=== PATIENT | male | born 1975 | race Caucasian/White ===

== ENCOUNTER 2019-04-21 17:41 | Emergency (ER) | payer BC ==
[2019-04-21] MEDS ORDERED: Take Home: Amoxicillin/Clavulanate K 875-125 MG Tab, 2 Tab Pack PO ONE (18:00)
--- NOTE | 2019-04-22 00:33 | EDM.PDOC ---
ED HPI GENERAL MEDICAL PROBLEM - General Chief Complaint: General Stated Complaint: Dental Pain Time Seen by Provider: 04/21/19 17:50 Source of Information: Reports: Patient History Limitations: Reports: No Limitations - History of Present Illness INITIAL COMMENTS - FREE TEXT/NARRATIVE: Pt. presents to ER with R upper dental pain. Pt. states that he woke with the symptoms today. He has a dental implant in R upper premolar but the crown has broken and he has not gotten the tooth addressed. He states that the pain is minimal. His primary complaint is that of L lateral facial swelling. Denies any fever or chills. No chest pain or shortness of breath. No sore throat. No difficulty with swallowing. Onset: Today Onset Date: 04/22/19 Duration: Getting Worse Location: Reports: Face, Other Quality: Reports: Ache Treatments ENGINEER: Reports: Acetaminophen, Cold Therapy Right Upper Jaw Pain Score (Numeric/FACES): 2 - Related Data Allergies Allergy/AdvReac Type Severity Reaction Status Date / Time No Known Allergies Allergy Verified 04/21/19 17:55 Home Meds: Home Meds levETIRAcetam [Keppra] 750 mg PO BID 07/25/16 [History] Past Medical History Neurological History: Reports: Seizure - Past Surgical History GI Surgical History: Reports: Cholecystectomy Social & Family History - Tobacco Use Smoking Status *Q: Former Smoker Used Tobacco, but Quit: Yes Month/Year Tobacco Last Used: 15 years ago - Recreational Drug Use Recreational Drug Use: No ED ROS GENERAL - Review of Systems Review Of Systems: ROS reveals no pertinent complaints other than HPI. ED EXAM, GENERAL - Physical Exam Exam: See Below Exam Limited By: No Limitations General Appearance: Alert, WD/WN, No Apparent Distress Throat/Mouth: Inflammation (edema to R buccal area. No obvious abscess noted. Exposed dental implant-R premolar. Mild edema noted to L area surrounding R upper molar.) Head: Atraumatic, Normocephalic Neck: Normal Inspection, Supple, Non-Tender, Full Range of Motion Course - Vital Signs Last Recorded V/S: Last Vital Signs Temp 36.8 C 04/21/19 17:45 Pulse 88 04/21/19 17:45 Resp 12 04/21/19 17:45 BP 124/94 H 04/21/19 17:45 Pulse Ox 97 04/21/19 17:45 - Orders/Labs/Meds Meds: Medications Discontinued Medications Generic Name Dose Route Start Last Admin Trade Name Kyle PRN Reason Stop Dose Admin Amoxicillin/Clavulanate Potassium 1 packet 04/21/19 18:00 04/21/19 18:13 Take Home: Amox/Clavulanate 875-12, 2 Tab Pac PO 04/21/19 18:01 1 packet ONETIME ONE Administration Departure - Departure Time of Disposition: 18:12 Disposition: Home, Self-Care 01 Condition: Good Clinical Impression: Dental infection - Discharge Information Instructions: Amoxicillin; Clavulanic Acid tablets, Dental Abscess, Easy-to- Read, Probiotics Referrals: PCP,None [Primary Care Provider] - Forms: ED Department Discharge Additional Instructions: Augmentin 875mg 1 twice daily for 10 days Follow-up with dentist within the next week Tylenol and ibuprofen for discomfort - Assessment/Plan Plan: Augmentin 875mg 1 twice daily for 10 days Follow-up with dentist within the next week Tylenol and ibuprofen for discomfort
== END 2019-04-21 18:12 | disposition home or self-care (01) ==
LOC: VM.ED 17:41
DX: K04.7 Periapical abscess without sinus (principal); Z87.891 Personal history of nicotine dependence; Z79.899 Other long term (current) drug therapy
CPT/HCPCS: 99282; A9270

== ENCOUNTER 2022-07-03 20:29 | Emergency (ER) | payer BC ==
[2022-07-03 21:18] LABS: ANION GAP 11.8 mmol/L (5-15); CHLORIDE,CL 106 mmol/L (98-107); ESTIMATED GFR 93 mL/min (>=60); SODIUM,NA 142 mmol/L (136-145)
== END 2022-07-03 21:40 | disposition home or self-care (01) ==
LOC: VM.ED 20:29
DX: R56.9 Unspecified convulsions (principal); Z79.899 Other long term (current) drug therapy
CPT/HCPCS: 36415; 80048; 85025; 99284

== ENCOUNTER 2023-09-13 11:08 | Emergency (ER) | payer OTHER, BC ==
[2023-09-13] MEDS ORDERED: Oxymetazoline 0.05% Nasal Spray 30 ML Bottle NAS ONE (11:16)
== END 2023-09-13 12:37 | disposition home or self-care (01) ==
LOC: VM.ED 11:08
DX: S02.2XXA Fracture of nasal bones, initial encounter for closed fracture (principal); W20.8XXA Other cause of strike by thrown, projected or falling object, initial encounter
CPT/HCPCS: 70486; 99283